=== PATIENT | female | born 1975 | race Caucasian/White ===

== ENCOUNTER 2018-03-14 16:04 | Emergency (ER) | payer OTHER ==
[~2018-03-14] VITALS: Ht 177.8 cm; Wt 90.7 kg
[~2018-03-14 16:04] MED LIST: BACTRIM DS TAB1 EACH PO; CEFUROXIME250 MG PO; CITRATE OF MAG296 ML PO; CLEOCIN HCL150 MG PO; CLONAZEPAM 1 MG1 M1 PO; COLACE100 MG PO; ESTROGEN-METHY1 EAC2 PO; FLEXERIL PO; HYDROCODON-ACE1 EAC7 PO; HYDROCODONE-AP1 EAC6 PO; IBUPROFEN 800800 M1 PO; KEFLEX500 MG PO; KLONAPIN; MACROBID 100 M100 M1 PO; MOBIC7.5 M1 PO; NICOTINE TRANSD21 M1 TRANSDERM; NORCO 5-325 TA1 EAC1 PO; NYSTATIN 100,0015 G1 TP; OMEPRAZOLE40 MG PO; PERCOCET 5-3251 EACH PO; PREDNISONE 10 M10 M1 PO; PREDNISONE 20 M20 M1 PO; PREMPHASE 0.621 EAC1 PO; PROMETHAZINE/C118 ML PO; TEGRETOL XR100 MG PO; TEGRETOL XR200 MG PO; TRAMADOL 50 MG50 MG PO; VICODIN 5-5001 EACH PO; WELLBUTRIN SR150 MG PO; WELLBUTRIN XL150 MG PO; ZOFRAN4 MG PO; ZPAK PO
[2018-03-14] MEDS ORDERED: WELLBUTRIN XL150 MG PO (16:23)
[2018-03-14] MEDS ORDERED: CLONAZEPAM 1 MG1 M1 PO (16:23)
[2018-03-14] MEDS ORDERED: MAALOX ADVANCE355 ML PO (16:27)
[2018-03-14] MEDS ORDERED: PHENTERMINE HCL30 MG PO (16:27)
[2018-03-14 17:00] LABS: ABSOLUTE BASOPHILS 0.1 thou/uL (0.0-0.2); ABSOLUTE EOSINOPHILS 0.2 thou/uL (0.0-0.7); ABSOLUTE LYMPHOCYTES 3.8 thou/uL (0.8-5.3); ABSOLUTE MONOCYTES 0.6 thou/uL (0.0-1.2); ABSOLUTE NEUTROPHILS 4.7 thou/uL (1.6-8.1); BASOPHILS 0.7 %; EOSINOPHILS 2.1 %; HEMATOCRIT 40.9 % (37.0-47.0); HEMOGLOBIN 14.1 gm/dL (12.0-15.0); LYMPHOCYTES 40.9 %; MCH 30.7 pg (26.0-34.0); MCHC 34.4 g/dL (28.0-37.0); MCV 89.3 fL (80.0-100.0); MONOCYTES 5.9 %; MPV 8.1 fl. (7.2-11.1); NUCLEATED RBCS 0 /100WBC; PLATELET COUNT* 243 thou/uL (150-400); POLYS 50.4 %; RBC 4.58 mil/uL (4.20-5.00); WBC 9.3 thou/uL (4.0-11.0)
[2018-03-14 17:09] LABS: CALCIUM 8.7 mg/dL (8.5-10.1); CREATININE 0.7 mg/dL (0.6-1.3); POTASSIUM 3.7 mmol/L (3.5-5.1)
[2018-03-14 17:14] LABS: ALBUMIN 3.4 g/dL (3.4-5.0); TOTAL BILIRUBIN 0.4 mg/dL (<0.1-1.0); TOTAL PROTEIN 6.9 g/dL (6.4-8.2)
[2018-03-14] MEDS ORDERED: ZPAK PO (17:18)
[2018-03-14] MEDS ORDERED: TESSALON PERLE100 M1 PO (17:18)
[2018-03-14 17:34] VITALS: BP 135/88
== END 2018-03-14 17:35 | disposition home or self-care (01) ==
LOC: M.ERS 16:04
PROVIDERS: Physician Assistant
DX: J06.9 Acute upper respiratory infection, unspecified (principal); F31.9 Bipolar disorder, unspecified; M46.90 Unspecified inflammatory spondylopathy, site unspecified; F17.210 Nicotine dependence, cigarettes, uncomplicated; Z88.0 Allergy status to penicillin; Z88.8 Allergy status to other drugs, medicaments and biological substances; Z87.440 Personal history of urinary (tract) infections; Z98.890 Other specified postprocedural states; Z90.710 Acquired absence of both cervix and uterus

== ENCOUNTER 2019-05-31 10:55 | Emergency (ER) | payer OTHER ==
[~2019-05-31] VITALS: Ht 175.3 cm; Wt 90.7 kg
[~2019-05-31 10:55] MED LIST changes: +MAALOX ADVANCE355 ML PO; +PHENTERMINE HCL30 MG PO; +TESSALON PERLE100 M1 PO
--- NOTE | 2019-05-31 11:22 | EKG ---
[place] [address] ELECTROCARDIOGRAM REPORT Name: JOSE RAUL BECK Room: [facility].#: [id number] Admission: Attend Phys: Discharge: Date of : 77 Date of Service: 05/31/19 1102 Report #: [id number] THIS REPORT FOR: cc: Sharath Littlejohn MD,Josiah Coy MD [facility] ~ THIS REPORT FOR: //name// [facility] ED Test Date: 2019-05-31 Test Time: 11:02:45 Pat Name: JOSE RAUL BECK Department: Room: Gender: F Accountant Cost: JOSE FRANCISCO : 1975 Requested By: Chris Rea Order Number: [id number] MD: Josiah Bai Measurements Intervals [place] Rate: 95 P: 53 SC: 143 QRS: 18 QRSD: 98 T: 52 QT: 365 QTc: 459 Interpretive Statements Sinus rhythm Compared to ECG 11/05/2014 19:14:32 No significant changes Electronically Signed On 05-31-2019 11:21:28 [employer] by Josiah Bai [email or web address] <ELECTRONICALLY SIGNED> By: Josiah Bai MD, FAC 05/31/19 1121 1102 1102 Josiah Bai MD, [facility] /EPI
[2019-05-31 11:37] LABS: ABSOLUTE BASOPHILS 0.1 thou/uL (0.0-0.2); ABSOLUTE EOSINOPHILS 0.3 thou/uL (0.0-0.7); ABSOLUTE LYMPHOCYTES 3.7 thou/uL (0.8-5.3); ABSOLUTE MONOCYTES 0.5 thou/uL (0.0-1.2); ABSOLUTE NEUTROPHILS 4.1 thou/uL (1.6-8.1); BASOPHILS 0.9 %; EOSINOPHILS 3.4 %; HEMATOCRIT 38.9 % (37.0-47.0); HEMOGLOBIN 13.5 gm/dL (12.0-15.0); LYMPHOCYTES 42.5 %; MCH 31.3 pg (26.0-34.0); MCHC 34.8 g/dL (28.0-37.0); MCV 90.1 fL (80.0-100.0); MONOCYTES 6.3 %; MPV 8.3 fl. (7.2-11.1); NUCLEATED RBCS 0 /100WBC; PLATELET COUNT* 180 thou/uL (150-400); POLYS 46.9 %; RBC 4.32 mil/uL (4.20-5.00); WBC 8.8 thou/uL (4.0-11.0)
[2019-05-31 11:46] LABS: CALCIUM 7.6 mg/dL (8.5-10.1); CREATININE 0.8 mg/dL (0.6-1.3)
[2019-05-31 11:51] LABS: ALBUMIN 3.2 g/dL (3.4-5.0); TOTAL BILIRUBIN 0.1 mg/dL (<0.1-1.0); TOTAL PROTEIN 6.4 g/dL (6.4-8.2)
[2019-05-31 12:27] LABS: INFLUENZA A ANTIGEN Negative (Negative); INFLUENZA B ANTIGEN Negative (Negative)
[2019-05-31] MEDS ORDERED: TYLENOL WITH CO1 TA1 PO (12:50)
[2019-05-31] MEDS ORDERED: TESSALON PERLE100 MG PO (12:50)
[2019-05-31] MEDS ORDERED: CLEOCIN HCL150 MG PO (12:50)
[2019-05-31 13:09] VITALS: BP 129/80
== END 2019-05-31 13:10 | disposition home or self-care (01) ==
LOC: M.ERS 10:55
PROVIDERS: Physician Assistant
DX: K04.7 Periapical abscess without sinus (principal); K02.9 Dental caries, unspecified; J02.9 Acute pharyngitis, unspecified; R05 Cough; M46.90 Unspecified inflammatory spondylopathy, site unspecified; F17.210 Nicotine dependence, cigarettes, uncomplicated; Z88.0 Allergy status to penicillin; Z88.8 Allergy status to other drugs, medicaments and biological substances; Z87.440 Personal history of urinary (tract) infections; Z98.890 Other specified postprocedural states; Z90.710 Acquired absence of both cervix and uterus

== ENCOUNTER 2020-03-05 10:25 | Emergency (ER) | payer OTHER ==
[~2020-03-05] VITALS: Ht 177.8 cm; Wt 99.8 kg
[~2020-03-05 10:25] MED LIST changes: +TESSALON PERLE100 MG PO; +TYLENOL WITH CO1 TA1 PO
[2020-03-05] MEDS ORDERED: ZOLOFT50 M1 PO (10:53)
[2020-03-05] MEDS ORDERED: FLONASE 0.05%50 MCG NARES (10:53)
[2020-03-05 11:44] LABS: ABSOLUTE BASOPHILS 0.1 thou/uL (0.0-0.2); ABSOLUTE EOSINOPHILS 0.3 thou/uL (0.0-0.7); ABSOLUTE LYMPHOCYTES 4.1 thou/uL (0.8-5.3); ABSOLUTE MONOCYTES 0.6 thou/uL (0.0-1.2); ABSOLUTE NEUTROPHILS 5.5 thou/uL (1.6-8.1); BASOPHILS 0.6 %; EOSINOPHILS 2.7 %; HEMATOCRIT 40.1 % (37.0-47.0); HEMOGLOBIN 13.6 gm/dL (12.0-15.0); LYMPHOCYTES 39.2 %; MCH 30.4 pg (26.0-34.0); MCHC 33.9 g/dL (28.0-37.0); MCV 89.8 fL (80.0-100.0); MONOCYTES 5.8 %; MPV 7.1 fl. (7.2-11.1); NUCLEATED RBCS 0 /100WBC; PLATELET COUNT* 265 thou/uL (150-400); POLYS 51.7 %; RBC 4.47 mil/uL (4.20-5.00); RDW-CV 13.1 % (10.5-14.5); WBC 10.5 thou/uL (4.0-11.0)
[2020-03-05 11:53] LABS: CALCIUM 8.2 mg/dL (8.5-10.1); CREATININE 0.8 mg/dL (0.6-1.3); POTASSIUM 4.8 mmol/L (3.5-5.1)
[2020-03-05 11:57] LABS: ALBUMIN 3.4 g/dL (3.4-5.0); MAGNESIUM 1.9 mg/dL (1.8-2.4); TOTAL BILIRUBIN 0.4 mg/dL (<0.1-1.0); TOTAL PROTEIN 6.8 g/dL (6.4-8.2)
[2020-03-05] MEDS ORDERED: IBUPROFEN 800800 M1 PO (14:17)
[2020-03-05] MEDS ORDERED: NORCO 5-325 TA1 EAC2 PO (14:17)
[2020-03-05 14:32] VITALS: BP 115/79
--- NOTE | 2020-03-05 17:15 | EKG ---
[place] [address] ELECTROCARDIOGRAM REPORT Name: JOSE RAUL BECK Room: [facility]#: [id number] Admission: 03/05/20 Attend Phys: Discharge: 03/05/20 Date of : 77 Date of Service: 03/05/20 1114 Report #: [id number] THIS REPORT FOR: //name// [facility] ED Test Date: 2020-03-05 Test Time: 11:14:13 Pat Name: JOSE RAUL BECK Department: Room: Gender: F Event Operations Manager: : 1975 Requested By: Cristobal Stephenson Order Number: [id number] MD: Clif Verde Measurements Intervals [place] Rate: 79 P: 65 SD: 148 QRS: 26 QRSD: 97 T: 55 QT: 389 QTc: 447 Interpretive Statements Sinus rhythm Delayed R wave progression compared to ECG 05/31/2019 11:02:45 No significant changes noted Electronically Signed On 03-05-2020 17:15:11 [employer]CT HELP DESK OFFICER by Clif Verde [email or web address] <ELECTRONICALLY SIGNED> By: Clif Verde MD, [facility] 03/05/20 1715 1114 1114 Clif Verde MD, [facility] /EPI
== END 2020-03-05 14:33 | disposition home or self-care (01) ==
LOC: M.ERS 10:25
PROVIDERS: Emergency Medicine Emergency Medical Services
DX: R07.89 Other chest pain (principal); M94.0 Chondrocostal junction syndrome [Tietze]; M47.9 Spondylosis, unspecified; F17.210 Nicotine dependence, cigarettes, uncomplicated; Z88.0 Allergy status to penicillin; Z88.8 Allergy status to other drugs, medicaments and biological substances; Z87.440 Personal history of urinary (tract) infections; Z98.890 Other specified postprocedural states; Z90.710 Acquired absence of both cervix and uterus